=== PATIENT | female | born 1980 | race African-American/Black ===

== ENCOUNTER 2017-07-12 10:33 | Emergency (ER) | payer OTHER ==
[~2017-07-12] VITALS: Ht 162.6 cm; Wt 95.5 kg
[~2017-07-12 10:33] MED LIST: HUMIBIDDM PO; MIREIUD I-UTERINE; OSEL75 PO
[2017-07-12 10:41] VITALS: BP 134/60; PULSE 69; RESP 20; TEMP 99.2; O2SAT 98
--- NOTE | 2017-07-12 12:07 | PD ---
HPI Chief Complaint: Cold / Flu Symptoms Time Seen by Provider: 11:58 Travel History International Travel<30 days: No Contact w/Intl Traveler<30days: No Traveled to known affect area: No History of Present Illness HPI 37y female presents to the ED complaining of cough, congestion, body aches and sore throat for approximately 2 days. Patient states that her son has been sick with a sore throat as well and is concerned that she has this infection as well. Patient states that she has had subjective fever but has not actually checked her temperature. No nausea, vomiting or diarrhea says she does use multiple [id number] medications for symptoms without significant relief. Patient has chronic medical issues issues medication use. PFSH Past Medical History ?: Not LMP: IUD, NO PERIOD Past Surgical History Cholecystectomy: Yes Other Surgery: Yes Social History Alcohol Use: No Tobacco Use: No Substance Use: No Allergies-Medications (Allergen,Severity, Reaction): Coded Allergies: No Known Allergies (Verified Adverse Reaction, Unknown, 06/22/17) Reported Meds & Prescriptions Reported Meds & Active Scripts Active Reported Mirena (Levonorgestrel (Iud)) 20 Mcg/24 Hour (5 Years) Iud 1 Ea I-UTERINE ONCE Review of Systems Except as stated in HPI: all other systems reviewed are Neg Physical Exam Narrative GENERAL: Well-nourished, well-developed patient. SKIN: Focused skin assessment warm/dry. HEAD: Normocephalic. EYES: No scleral icterus. No injection or drainage. Posterior pharynx mildly erythematous with cobblestoning, no exudate no tonsillar hypertrophy NECK: Supple, trachea midline. No JVD or lymphadenopathy. CARDIOVASCULAR: Regular rate and rhythm without murmurs, gallops, or rubs. RESPIRATORY: Breath sounds equal bilaterally. No accessory muscle use. GASTROINTESTINAL: Abdomen soft, non-tender, nondistended. No CVA tenderness MUSCULOSKELETAL: No cyanosis, or edema. Homans sign negative bilaterally BACK: Nontender without obvious deformity. No CVA tenderness. Data Data Last Documented VS Vital Signs Date Time Temp Pulse Resp B/P (MAP) Pulse Ox O2 Delivery O2 Flow Rate FiO2 07/12/17 10:41 99.2 69 20 134/60 (84) 98 Orders Orders Influenzae A/B Antigen (07/12/17 10:43) Group A Rapid Strep Screen (07/12/17 10:43) Strep Culture (Group A) (07/12/17 11:13) [facility] Medical Decision Making Medical Screen Exam Complete: Yes Emergency Medical Condition: Yes Differential Diagnosis Influenza, common cold, strep pharyngitis, viral syndrome Narrative Course 37y female presents to the ED complaining of cough, congestion, body aches and sore throat for approximately 2 days. Patient states that her son has been sick with a sore throat as well and is concerned that she has this infection as well. Patient states that she has had subjective fever but has not actually checked her temperature. Says she does use multiple [id number] medications for symptoms without significant relief. Patient has chronic medical issues issues medication use. Vital signs stable. Temperature 99.2. Physical exam findings essentially unremarkable except for posterior pharynx injection. Flu and strep negative. I am still convinced the patient would benefit from Tamiflu. Patient states that she would prefer to have Tamiflu as she has been around her child who has been sick as well. Advised to have proper nutrition and encourage fluid intake. Advised to follow-up with primary care physician within 2-3 days. Advised to return to emergency for worsening or persistent symptoms. Diagnosis Primary Impression: Viral syndrome Referrals: Primary Care Physician Additional Instructions: Ensure adequate fluid intake and proper nutrition. Take all medications as prescribed. If your symptoms persist or worsen return to the emergency department. Your flu test is negative however, he describes symptoms of the flu and you are being treated with Tamiflu. Scripts Oseltamivir (Tamiflu) 75 Mg Cap 75 MG PO BID for Mgmt Viral Infection for 5 Days, #10 CAP 0 Refills Prov: Reena Valentino 07/12/17 Disposition: 01 DISCHARGE HOME Condition: Stable Reena Valentino Jul 12, 2017 12:07
[2017-07-12] MEDS ORDERED: OSEL75 PO (12:35)
== END 2017-07-12 13:09 | disposition home or self-care (01) ==
LOC: NEPA 10:33
DX: B34.9 Viral infection, unspecified (principal)
CPT/HCPCS: 87081; 87804; 87880; 99283